=== PATIENT | male | born 1960 | race Caucasian/White ===

== ENCOUNTER 2017-07-07 11:51 | Day surgery (SDC) | payer BC ==
[2017-07-07] MEDS ORDERED: MIDAZOLAM 1 MG/ML 2 ML INJ (12:47)
[2017-07-07] MEDS ORDERED: PROPOFOL 20 ML (12:47)
[2017-07-07] MEDS ORDERED: FENTAnyl 50 MCG/ML VIAL (12:48)
== END 2017-07-07 17:12 | disposition home or self-care (01) ==
LOC: GIL 11:51
DX: K21.0 Gastro-esophageal reflux disease with esophagitis (principal); K29.70 Gastritis, unspecified, without bleeding; I25.10 Atherosclerotic heart disease of native coronary artery without angina pectoris; Z95.5 Presence of coronary angioplasty implant and graft; J45.909 Unspecified asthma, uncomplicated; E78.5 Hyperlipidemia, unspecified
CPT/HCPCS: 43239; 88305; 88313

== ENCOUNTER → 2017-10-28 | Outpatient (CLI) | payer BC ==
[2017-10-28 09:30] LABS: ANION GAP 11 (8-16); BLOOD UREA NITROGEN 13 mg/dl (7-20); CALCIUM 9.2 mg/dl (8.4-10.2); CARBON DIOXIDE 28 mmol/L (21-31); CHLORIDE 107 mmol/L (97-110); CREATININE 0.66 mg/dl (0.61-1.24); GLUCOSE 104 mg/dl (70-220); POTASSIUM 4.9 mmol/L (3.5-5.1); SODIUM 141 mmol/L (135-144)
[2017-10-28] MEDS: SOD CHLORIDE 0.9% 100 ML (10:52)
[2017-10-28] MEDS: IODIXANOL LOCM 100 ML BTL (10:53)
[2017-10-28] MEDS: NITROGLYCERIN AEROSOL (4.9 GM) (11:09)
[2017-10-28] MEDS: IOHEXOL 0 ML (11:09)
== END | disposition home or self-care (01) ==
LOC: LAB 08:33
DX: R07.9 Chest pain, unspecified (principal)
CPT/HCPCS: 75574; 80048

== ENCOUNTER 2017-12-24 07:14 | Day surgery (SDC) | payer BC ==
[~2017-12-24 07:14] MED LIST: DIAZEPAM 5 MG TAB PO; DIPHENHYDRAMINE 50 MG CAP PO; FAMOTIDINE 20 MG TAB PO; SOD CHLORIDE 0.45% 1,000 ML IV
[2017-12-24 08:05] LABS: ADD MAN DIFF? NO
[2017-12-24 08:12] LABS: WHITE BLOOD COUNT 5.6 10^3/ul (4.8-10.8)
[2017-12-24 08:12] LABS: BASOPHILS % 0.2 % (0.0-2.0); EOSINOPHILS # 0.1 10^3/ul (0.0-0.5); EOSINOPHILS % 2.1 % (0.0-7.0); HEMATOCRIT 39.3 % (42.0-52.0); HEMOGLOBIN 13.2 g/dl (14.0-18.0); LYMPHOCYTES # 1.5 10^3/ul (0.8-2.9); LYMPHOCYTES % 25.9 % (15.0-51.0); MEAN CORPUSCULAR HGB CONC 33.6 g/dl (32.0-37.0); MEAN CORPUSCULAR VOLUME 95.2 fl (82.0-101.0); MEAN PLATELET VOLUME 9.9 fl (7.4-10.4); MONOCYTE # 0.6 10^3/ul (0.3-0.9); MONOCYTES % 10.5 % (0.0-11.0); NEUTROPHIL # 3.4 10^3/ul (1.6-7.5); NEUTROPHILS % 61.1 % (39.0-77.0); PLATELET COUNT 159 10^3/UL (140-415); RED BLOOD COUNT 4.13 10^6/ul (4.70-6.10); RED CELL DISTRIBUTION WIDTH 13.1 % (11.5-14.5)
[2017-12-24 08:31] LABS: INR 0.97
[2017-12-24 08:32] LABS: PARTIAL THROMBOPLASTIN TIME 28.4 Sec (23.0-35.0)
[2017-12-24 08:41] LABS: ANION GAP 11 (8-16); BLOOD UREA NITROGEN 9 mg/dl (7-20); CALCIUM 8.9 mg/dl (8.4-10.2); CARBON DIOXIDE 26 mmol/L (21-31); CHLORIDE 108 mmol/L (97-110); CREATININE 0.49 mg/dl (0.61-1.24); GLUCOSE 97 mg/dl (70-220); POTASSIUM 4.3 mmol/L (3.5-5.1); SODIUM 141 mmol/L (135-144)
[2017-12-24] MEDS ORDERED: MIDAZOLAM 1 MG/ML 2 ML INJ (09:06)
[2017-12-24] MEDS ORDERED: LIDOCAINE 1% (MDV) 20 ML INJ (09:06)
[2017-12-24] MEDS ORDERED: HEPARIN 1000 UNITS/ML 10 ML INJ (09:06)
[2017-12-24] MEDS ORDERED: FENTAnyl 50 MCG/ML VIAL (09:06)
[2017-12-24] MEDS ORDERED: IODIXANOL LOCM 100 ML BTL (09:06)
[2017-12-24] MEDS ORDERED: VERAPAMIL 5 MG INJ (09:07)
[2017-12-24] MEDS ORDERED: NITROGLYCERIN (IC) 100 MCG/ML INJ (09:07)
[2017-12-24] MEDS ORDERED: ONDANSETRON 4 MG INJ IV (11:30)
[2017-12-24] MEDS ORDERED: morphine 2 MG INJ IV (11:30)
[2017-12-24] MEDS ORDERED: AL HYDROX/MG HYDROX/SIMETH 30 ML CUP PO (11:30)
[2017-12-24] MEDS ORDERED: ACETAMINOPHEN 325 MG TAB PO (11:30)
== END 2017-12-24 14:08 | disposition home or self-care (01) ==
LOC: CCL 07:14 → SDS 07:14 → CCL 14:08
DX: R07.9 Chest pain, unspecified (principal); Z53.8 Procedure and treatment not carried out for other reasons
CPT/HCPCS: 71045; 80048; 85025; 85610; 85730; 93005